=== PATIENT | male | born 1955 | race African-American/Black ===

== ENCOUNTER 2023-03-06 11:53 | Inpatient (IN) | payer MEDICARE, SELFPAY ==
[2023-03-06 12:57] LABS: #Eosinphils 0.1 thou/uL (0.0-0.7); #Lymphocytes 1.6 thou/uL (1.20-3.40); #Monocytes 0.4 thou/uL (0.11-0.59); #Neutrophils 2.4 thou/uL (1.40-6.50); %Basophils 0.6 % (0.0-1.0); %Eosinophils 1.6 % (0.0-10.0); %Lymphocytes 35.5 % (21.0-51.0); %Monocytes 8.5 % (0.0-10.0); %Neutrophils 53.7 % (42.0-75.0); Hemoglobin 13.4 g/dL (14.0-18.0); Mean Corpuscular HGB CONC 32.2 g/dL (32.0-36.0); Mean Platelet Volume 6.4 fL (7.4-10.4); Platelet Count 268 10x3/uL (130-400); RBC Distribution Width 14.3 % (11.5-14.5); Red Blood Cell (RBC) Count 4.04 mill/uL (4.70-6.10); White Blood Cell (WBC) Count 4.4 10x3/uL (4.8-10.8)
[2023-03-06 13:25] LABS: ALT (SGPT) Less than 7 U/L (8-55); AST (SGOT) 17 U/L (5-34); Albumin 3.8 g/dL (3.4-4.8); Alkaline Phosphatase 125 U/L (40-110); Anion Gap 14 mmol/L (10-20); BUN (Urea Nitrogen) 10 mg/dL (8.4-25.7); Calc. Creatinine Clearance 0 mL/min (70-130); Calcium 9.3 mg/dL (7.8-10.44); Carbon Dioxide 22 mmol/L (23-31); Chloride 107 mmol/L (98-107); Estimated GFR 80; Globulin 5.3 g/dL (2.4-3.5); Glucose 107 mg/dL (80-115); Potassium 3.7 mmol/L (3.5-5.1); Protein, Total 9.1 g/dL (5.8-8.1); Sodium 139 mmol/L (136-145)
[2023-03-06] MEDS ORDERED: Ondansetron PF 4 MG/2 ML Vial IVP PRN (14:49)
[2023-03-06] MEDS ORDERED: Senokot S 8.6-50 MG TAB PO PRN (14:49)
[2023-03-06] MEDS ORDERED: Guaifenesin DM 100-10/5 ML UDCUP PO PRN (14:49)
[2023-03-06] MEDS ORDERED: Acetaminophen 325 MG TAB PO PRN (14:49)
[2023-03-06 15:21] LABS: INR-International Normal Ratio 1.1; Prothrombin Time 14.5 sec (12.0-14.7)
[2023-03-06 15:22] LABS: PTT 33.3 sec (22.9-36.1)
[2023-03-06] MEDS ORDERED: Iopamidol-370 76% 500 ML MDV (1 ML CHARGE) ONE (15:29)
[2023-03-06] MEDS ORDERED: Heparin 25,000 units/D5W 500 ML IVPB SCH (15:30)
[2023-03-06] MEDS ORDERED: Heparin 10,000 UNITS/ 10 ML VIAL SLOW IVP SCH (15:30)
[2023-03-06] MEDS ORDERED: Aspirin Chewable 81 MG TAB ONE (15:32)
[2023-03-06] MEDS ORDERED: Furosemide 40 MG/4 ML VIAL ONE (15:32)
[2023-03-06] MEDS ORDERED: Nitroglycerin 0.4 MG TAB 1 EACH ONE (15:32)
[2023-03-06 15:43] LABS: Hemoglobin 12.7 g/dL (14.0-18.0); Platelet Count 258 10x3/uL (130-400)
[2023-03-06 16:08] LABS: Troponin I 0.025 ng/mL (< 0.028)
[2023-03-06] MEDS ORDERED: Heparin 10,000 UNITS/ 10 ML VIAL ONE (16:30)
[2023-03-06] MEDS ORDERED: Heparin 25,000 units/D5W 500 ML ONE (16:30)
[2023-03-06 17:46] VITALS: BMI 25.3
[2023-03-06 19:32] LABS: Troponin I 0.025 ng/mL (< 0.028)
[2023-03-06] MEDS: Carvedilol 6.25 MG TAB PO SCH (21:40)
[2023-03-07 00:16] LABS: PTT 200.2 sec (22.9-36.1)
[2023-03-07 03:56] LABS: ALT (SGPT) Less than 7 U/L (8-55); AST (SGOT) 16 U/L (5-34); Albumin 3.3 g/dL (3.4-4.8); Alkaline Phosphatase 108 U/L (40-110); Anion Gap 14 mmol/L (10-20); BUN (Urea Nitrogen) 11 mg/dL (8.4-25.7); Calc. Creatinine Clearance 74 mL/min (70-130); Calcium 8.8 mg/dL (7.8-10.44); Carbon Dioxide 22 mmol/L (23-31); Cardiac Risk 5.1 (Less than 4.5); Chloride 104 mmol/L (98-107); Cholesterol 144 mg/dl (< 200 Desired); Estimated GFR 83; Globulin 4.5 g/dL (2.4-3.5); Glucose 103 mg/dL (80-115); HDL Cholesterol 28 mg/dL (>60 Neg Risk); LDL Cholesterol, Calculated 101 mg/dL; Magnesium 1.6 mg/dL (1.6-2.6); Potassium 2.9 mmol/L (3.5-5.1); Protein, Total 7.8 g/dL (5.8-8.1); Sodium 137 mmol/L (136-145); Triglycerides 75 mg/dL (Less than 150)
[2023-03-07 04:19] LABS: Hemoglobin 12.5 g/dL (14.0-18.0); Lymphocytes 54 % (21-51); MDiff Complete? YES; Macrocytosis MODERATE=16-30 cells (100X) (0-5/hpf); Mean Corpuscular Hemoglobin 34.6 pg (27.0-31.0); Mean Platelet Volume 6.5 fL (7.4-10.4); Monocytes 7 % (0-10); Neutrophil 39 % (42-75); Ovalocytes SLIGHT = 2-5 cells (100X) (0-1/hpf); Platelet Count 245 10x3/uL (130-400); Platelet Morphology Comment Appears Adequate; RBC Distribution Width 14.5 % (11.5-14.5); Red Blood Cell (RBC) Count 3.61 mill/uL (4.70-6.10); White Blood Cell (WBC) Count 4.9 10x3/uL (4.8-10.8)
[2023-03-07] MEDS: Furosemide 40 MG/4 ML VIAL SLOW IVP SCH ×2 (05:58→13:12)
[2023-03-07] MEDS ORDERED: Electrolyte Replacement Protocol FS PRN (07:45)
[2023-03-07] MEDS ORDERED: Magnesium 2 GM/50 ML(in water) 2 GM in Premix Bag 1 BAG IVPB SCH (08:00)
[2023-03-07] MEDS: Carvedilol 6.25 MG TAB PO SCH ×2 (08:06→21:13)
[2023-03-07] MEDS: Potassium Chloride 20 MEQ TAB PO SCH ×2 (08:06→11:20)
[2023-03-07] MEDS ORDERED: Apixaban 5 MG TAB PO SCH (09:30)
[2023-03-07 16:05] LABS: Potassium 4.1 mmol/L (3.5-5.1)
[2023-03-07] MEDS ORDERED: Atorvastatin Calcium 20 MG TAB PO SCH (21:00)
[2023-03-07] MEDS: Apixaban 5 MG TAB PO SCH (21:14)
[2023-03-08 05:59] LABS: Magnesium 2.1 mg/dL (1.6-2.6)
[2023-03-08] MEDS: Furosemide 40 MG/4 ML VIAL SLOW IVP SCH (06:13)
[2023-03-08 07:32] VITALS: BP 146/74; TEMP 97.3
[2023-03-08] MEDS: Carvedilol 6.25 MG TAB PO SCH (08:18)
[2023-03-08] MEDS: Apixaban 5 MG TAB PO SCH (08:19)
[2023-03-08 09:57] LABS: Anion Gap 14 mmol/L (10-20); BUN (Urea Nitrogen) 12 mg/dL (8.4-25.7); Calc. Creatinine Clearance 63 mL/min (70-130); Calcium 9.2 mg/dL (7.8-10.44); Carbon Dioxide 24 mmol/L (23-31); Chloride 103 mmol/L (98-107); Estimated GFR 73; Glucose 115 mg/dL (80-115); Potassium 3.6 mmol/L (3.5-5.1); Sodium 137 mmol/L (136-145)
== END 2023-03-08 12:50 | disposition home or self-care (01) | DRG 291 ==
LOC: ERS 11:53 → ERHOLD 14:56 → OBSVTOIN 14:57 → 2NO 17:34
PROVIDERS: ADMIT Hospitalist; ATTEND Hospitalist
DX: I11.0 Hypertensive heart disease with heart failure (principal); I50.33 Acute on chronic diastolic (congestive) heart failure; I16.1 Hypertensive emergency; I82.411 Acute embolism and thrombosis of right femoral vein; F17.210 Nicotine dependence, cigarettes, uncomplicated; F10.90 Alcohol use, unspecified, uncomplicated; Z79.899 Other long term (current) drug therapy
CPT/HCPCS: 36415; 36416; 71045; 71275; 80048; 80053; 80061; 83735; 83880; 84443; 84484; 85025; 85610; 85730; 93005; 93306; 93798; 93970; J1644; J1940; J3475; Q9967